=== PATIENT | female | born 1940 | race American Indian/Alaskan Native ===

== ENCOUNTER 2021-11-22 17:18 | Emergency (ER) | payer MEDICARE ==
[2021-11-22 17:24] VITALS: BP 166/78
== END 2021-11-22 22:14 | disposition left against medical advice (07) ==
LOC: ED 17:18
DX: Z99.2 Dependence on renal dialysis (principal); Z53.21 Procedure and treatment not carried out due to patient leaving prior to being seen by health care provider

== ENCOUNTER 2021-11-23 02:10 | Inpatient (IN) | payer MEDICARE ==
--- NOTE | 2021-11-23 02:49 | Emergency Department Report ---
ED General Adult HPI - General Chief complaint: Medical Clearance Stated complaint: DIALYSIS Time Seen by Provider: 11/23/21 02:41 Source: patient Mode of arrival: Wheelchair Limitations: Other - History of Present Illness Initial comments: 81-year-old -[place] female with a past medical history of hypertension, CHF, CKD stage V on dialysis, was brought to ED by [facility] staff with a chief complaint that patient needs dialysis. Patient is poor historian, states that she has been missing dialysis, does have a port in right upper chest. No fever, chills or night sweats. No chest pain or shortness of breath. -: Gradual, days(s) (2) Location: chest Radiation: non-radiation Severity scale (0 -10): 4 Quality: dull Consistency: intermittent Improves with: none Worsens with: none Associated Symptoms: denies other symptoms Treatments Prior to Arrival: none - Related Data Home Medications Medication Instructions Recorded Confirmed Last Taken Atorvastatin [Lipitor] 80 mg PO QHS 11/07/21 11/07/21 Unknown Budesonide/Formoterol Fumarate 2 puff IH BID 11/07/21 11/07/21 Unknown [Budesonide-Formoterol 160-4.5] Hydralazine HCl 50 mg PO TID 11/07/21 11/07/21 Unknown Insulin Glargine [Lantus VIAL] 15 unit SUB-Q BID 11/07/21 11/07/21 Unknown Isosorbide Mononitrate [Isosorbide 120 mg PO QDAY 11/07/21 11/07/21 Unknown Mononitrate ER] Levothyroxine [Synthroid] 75 mcg PO QAM 11/07/21 11/07/21 Unknown Megestrol Acetate 400 mg PO QDAY 11/07/21 11/07/21 Unknown Pantoprazole [Protonix TAB] 40 mg PO QDAY 11/07/21 11/07/21 Unknown carvediloL [Coreg] 25 mg PO Q12H 11/07/21 11/07/21 Unknown cloNIDine-TTS PATCH [Catapres-Tts 1 patch TD Q7D 11/07/21 11/07/21 Unknown 0.3mg Patch] minoxidiL [Loniten] 2.5 mg PO QDAY 11/07/21 11/07/21 Unknown Previous Rx's Medication Instructions Recorded Last Taken Type NIFEdipine XL [Procardia Xl] 30 mg PO Q12HR tablet 11/12/21 Unknown Rx Allergies Allergy/AdvReac Type Severity Reaction Status Date / Time tositumomab iodine-131 Allergy Hives Verified 11/23/21 02:33 Iodine and Iodide Containing AdvReac Hives Verified 11/07/21 01:38 Produc ED Review of Systems ROS: Stated complaint: DIALYSIS Other details as noted in HPI Constitutional: denies: chills, fever Eyes: denies: eye pain, eye discharge, vision change ENT: denies: ear pain, throat pain Respiratory: denies: cough, shortness of breath, wheezing Cardiovascular: denies: chest pain, palpitations Endocrine: no symptoms reported Gastrointestinal: denies: abdominal pain, nausea, diarrhea Genitourinary: denies: urgency, dysuria, discharge Musculoskeletal: denies: back pain, joint swelling, arthralgia Skin: denies: rash, lesions Neurological: denies: headache, weakness, paresthesias Psychiatric: denies: anxiety, depression Hematological/Lymphatic: denies: easy bleeding, easy bruising ED Past Medical Hx - Past Medical History Hx Hypertension: Yes Hx Diabetes: Yes Hx Renal Disease: Yes Additional medical history: DIALYSIS, HYPOTHYROIDISM - Social History Smoking Status: Never Smoker - Medications Home Medications: Home Medications Medication Instructions Recorded Confirmed Last Taken Type Atorvastatin [Lipitor] 80 mg PO QHS 11/07/21 11/07/21 Unknown History Budesonide/Formoterol Fumarate 2 puff IH BID 11/07/21 11/07/21 Unknown History [Budesonide-Formoterol 160-4.5] Hydralazine HCl 50 mg PO TID 11/07/21 11/07/21 Unknown History Insulin Glargine [Lantus VIAL] 15 unit SUB-Q BID 11/07/21 11/07/21 Unknown History Isosorbide Mononitrate [Isosorbide 120 mg PO QDAY 11/07/21 11/07/21 Unknown History Mononitrate ER] Levothyroxine [Synthroid] 75 mcg PO QAM 11/07/21 11/07/21 Unknown History Megestrol Acetate 400 mg PO QDAY 11/07/21 11/07/21 Unknown History Pantoprazole [Protonix TAB] 40 mg PO QDAY 11/07/21 11/07/21 Unknown History carvediloL [Coreg] 25 mg PO Q12H 11/07/21 11/07/21 Unknown History cloNIDine-TTS PATCH [Catapres-Tts 1 patch TD Q7D 11/07/21 11/07/21 Unknown History 0.3mg Patch] minoxidiL [Loniten] 2.5 mg PO QDAY 11/07/21 11/07/21 Unknown History NIFEdipine XL [Procardia Xl] 30 mg PO Q12HR tablet 11/12/21 Unknown Rx ED Physical Exam - General Limitations: Other General appearance: alert, in no apparent distress - Head Head exam: Present: atraumatic, normocephalic - Eye Eye exam: Present: normal appearance - ENT ENT exam: Present: mucous membranes moist - Neck Neck exam: Present: normal inspection - Respiratory Respiratory exam: Present: normal lung sounds bilaterally. Absent: respiratory distress - Cardiovascular Cardiovascular Exam: Present: regular rate, normal rhythm. Absent: systolic murmur, diastolic murmur, rubs, gallop - GI/Abdominal GI/Abdominal exam: Present: soft, normal bowel sounds - Extremities Exam Extremities exam: Present: normal inspection - Back Exam Back exam: Present: normal inspection - Neurological Exam Neurological exam: Present: alert, oriented X3 - Psychiatric Psychiatric exam: Present: normal affect, normal mood - Skin Skin exam: Present: warm, dry, intact, normal color. Absent: rash ED Course Vital Signs 11/23/21 11/23/21 11/23/21 02:31 03:17 03:18 Temperature 99.1 F Pulse Rate 84 86 Respiratory 18 16 18 Rate Blood Pressure 135/81 200/68 [Left] O2 Sat by Pulse 93 100 98 Oximetry ED Medical Decision Making - Lab Data Result diagrams: 11/23/21 03:01 11/23/21 03:01 - EKG Data -: EKG Interpreted by Me EKG shows normal: sinus rhythm Rate: normal - EKG Data When compared to previous EKG there are: no significant change Interpretation: nonspecific ST-T wave constantine 11/23/21 03:12 Rate 85 - Medical Decision Making Noncompliant dialysis patient in mild overload, will admit to get dialyzed. Nephrology consulted. Hospitalist consulted. - Differential Diagnosis Fluid overload, uremia, CHF. Critical care attestation.: If time is entered above; I have spent that time in minutes in the direct care of this critically ill patient, excluding procedure time. ED Disposition Clinical Impression: End-stage renal disease on hemodialysis, Hypertensive emergency, Uremia of renal origin Disposition: 09 ADMITTED INPATIENT Is pt being admited?: Yes Does the pt Need Aspirin: No Condition: Stable Instructions: Hypertension (ED)
[2021-11-23] MEDS ORDERED: cloNIDine 0.2 MG TAB PO ONE (03:22)
--- NOTE | 2021-11-23 03:22 | XRay Report ---
CHEST 1 VIEW 11/23/2021 2:09 AM INDICATION / CLINICAL INFORMATION: cp. COMPARISON: 11/07/2021. FINDINGS: SUPPORT DEVICES: Dialysis catheter unchanged. HEART / MEDIASTINUM: Stable cardiomegaly. LUNGS / PLEURA: No significant infiltrate accounting for rotation. No pneumothorax. ADDITIONAL FINDINGS: No significant additional findings. IMPRESSION: Stable chest. Signer Name: Wyatt Rock MD Signed: 11/23/2021 3:18 AM Workstation Name: [id number]
[2021-11-23 03:40] LABS: Alanine Aminotransferase 10 units/L (7-56); Albumin 3.6 g/dL (3.9-5); Blood Urea Nitrogen 43 mg/dL (7-17); Calcium 9.5 mg/dL (8.4-10.2); Hemolysis Index 6
[2021-11-23 03:43] LABS: BUN/Creatinine Ratio 5
[2021-11-23 03:51] LABS: Basophils # (Auto) 0.1 K/mm3 (0.0-0.1); Basophils % (Auto) 1.1 % (0.0-1.8); Eosinophils # (Auto) 0.1 K/mm3 (0.0-0.4); Eosinophils % (Auto) 1.7 % (0.0-4.3); Hematocrit 30.7 % (30.3-42.9); Hemoglobin 9.5 gm/dl (10.1-14.3); Lymphocytes # (Auto) 1.4 K/mm3 (1.2-5.4); Lymphocytes % (Auto) 20.1 % (13.4-35.0); Mean Corpuscular HGB Conc 31 % (30-34); Mean Corpuscular Volume 80 fl (79-97); Monocytes # (Auto) 0.9 K/mm3 (0.0-0.8); Monocytes % (Auto) 12.4 % (0.0-7.3); Platelet Count 240 K/mm3 (140-440); Red Blood Count 3.85 M/mm3 (3.65-5.03); Red Cell Distribution Width 15.2 % (13.2-15.2)
[2021-11-23 04:00] LABS: Chol/HDL Ratio 5.45 %
[2021-11-23] MEDS ORDERED: HYDROmorphone 1 MG/1 ML INJ IV PRN (05:06)
[2021-11-23] MEDS ORDERED: ACETAMINOPHEN 325 MG TAB PO PRN (05:06)
[2021-11-23] MEDS ORDERED: DEXTROSE 50% IN WATER (25GM) 50 ML SYRINGE IV PRN (05:06)
[2021-11-23] MEDS ORDERED: ALBUTEROL 2.5 MG/3 ML NEBU IH PRN (05:06)
[2021-11-23] MEDS ORDERED: ONDANSETRON 4 MG/2 ML INJ IV PRN (05:06)
[2021-11-23] MEDS ORDERED: MORPHINE 2 MG/1 ML INJ IV PRN (05:06)
--- NOTE | 2021-11-23 05:15 | History and Physical Report ---
History of Present Illness Date of examination: 11/23/21 Date of admission: 11/23/11 Chief complaint: Missed hemodialysis History of present illness: 81-year-old -[place] female with history of CHF, hypertension, end-stage renal disease on dialysis was brought to ED by [facility] staff with a chief complaint that patient needs dialysis. Patient is poor historian, states that she has been missing dialysis, does have a port in right upper chest. No fever, chills or night sweats. No chest pain or shortness of breath. In the emergency room patient is found to have BUN of 43 creatinine 8.7, troponin 0 0.109 and BNP greater than type 35,000 .subsequently Case was with nephrology's were going to admit the patient nephrology will hemodialyzed the patient in the morning Past History Past Medical History: ESRD, hypertension, hypothyroidism, renal failure Past Surgical History: Other (Hemodialysis) Social history: no significant social history, other (Never a smoker) Family history: no significant family history Medications and Allergies Allergies Allergy/AdvReac Type Severity Reaction Status Date / Time tositumomab iodine-131 Allergy Hives Verified 11/23/21 02:33 Iodine and Iodide Containing AdvReac Hives Verified 11/07/21 01:38 Produc Home Medications Medication Instructions Recorded Confirmed Last Taken Type Atorvastatin [Lipitor] 80 mg PO QHS 11/07/21 11/07/21 Unknown History Budesonide/Formoterol Fumarate 2 puff IH BID 11/07/21 11/07/21 Unknown History [Budesonide-Formoterol 160-4.5] Hydralazine HCl 50 mg PO TID 11/07/21 11/07/21 Unknown History Insulin Glargine [Lantus VIAL] 15 unit SUB-Q BID 11/07/21 11/07/21 Unknown History Isosorbide Mononitrate [Isosorbide 120 mg PO QDAY 11/07/21 11/07/21 Unknown His tory Mononitrate ER] Levothyroxine [Synthroid] 75 mcg PO QAM 11/07/21 11/07/21 Unknown History Megestrol Acetate 400 mg PO QDAY 11/07/21 11/07/21 Unknown History Pantoprazole [Protonix TAB] 40 mg PO QDAY 11/07/21 11/07/21 Unknown History carvediloL [Coreg] 25 mg PO Q12H 11/07/21 11/07/21 Unknown History cloNIDine-TTS PATCH [Catapres-Tts 1 patch TD Q7D 11/07/21 11/07/21 Unknown Hist ory 0.3mg Patch] minoxidiL [Loniten] 2.5 mg PO QDAY 11/07/21 11/07/21 Unknown History NIFEdipine XL [Procardia Xl] 30 mg PO Q12HR tablet 11/12/21 Unknown Rx Active Meds: Active Medications Acetaminophen (Acetaminophen 325 Mg Tab) 650 mg PO Q4H PRN PRN Reason: Pain MILD(1-3)/Fever >100.5/BALLARD Albuterol (Albuterol 2.5 Mg/3 Ml Nebu) 2.5 mg IH Q3HRT PRN PRN Reason: Shortness Of Breath Albuterol/Ipratropium (Ipratropium/Albuterol Sulfate 3 Ml Ampul.Neb) 1 ampul IH Q6HRT MARCIA Dextrose (Dextrose 50% In Water (25gm) 50 Ml Syringe) 50 ml IV Q30MIN PRN; Protocol PRN Reason: Hypoglycemia Famotidine (Famotidine 20 Mg Tab) 20 mg PO BID MARCIA Heparin Sodium (Porcine) (Heparin 5,000 Unit/1 Ml Vial) 5,000 unit SUB-Q Q12HR MARCIA Hydromorphone HCl (Hydromorphone 1 Mg/1 Ml Inj) 0.5 mg IV Q3H PRN PRN Reason: Pain , Severe (7-10) Insulin Human Lispro (Insulin Lispro 100 Unit/Ml) 0 unit SUB-Q ACHS MARCIA; Protocol Miscellaneous Medication (Atorvastatin [Lipitor]) 80 mg PO QHS MARCIA Miscellaneous Medication (Budesonide/Formoterol Fumarate [Budesonide-Formoterol 160-4.5]) 2 puff IH BID MARCIA Morphine Sulfate (Morphine 2 Mg/1 Ml Inj) 2 mg IV Q4H PRN PRN Reason: Pain, Moderate (4-6) Ondansetron HCl (Ondansetron 4 Mg/2 Ml Inj) 4 mg IV Q8H PRN PRN Reason: Nausea And Vomiting Sodium Chloride (Sodium Chloride 0.9% 10 Ml Flush Syringe) 10 ml IV BID MARCIA Sodium Chloride (Sodium Chloride 0.9% 10 Ml Flush Syringe) 10 ml IV PRN PRN PRN Reason: LINE FLUSH Review of Systems Constitutional: weakness, malaise, lethargy Exam - Constitutional Vitals: Temp Pulse Resp BP Pulse Ox 99.1 F 88 18 210/73 98 11/23/21 02:31 11/23/21 04:23 11/23/21 03:18 11/23/21 04:23 11/23/21 03:18 General appearance: Present: no acute distress, well-nourished - EENT Eyes: Present: PERRL ENT: hearing intact, clear oral mucosa - Neck Neck: Present: supple, normal ROM - Respiratory Respiratory effort: normal Respiratory: bilateral: CTA - Cardiovascular Heart Sounds: Present: S1 & S2. Absent: rub, click - Extremities Extremities: pulses symmetrical, No edema Peripheral Pulses: within normal limits - Abdominal General gastrointestinal: Present: soft, non-tender, non-distended, normal bowel sounds Female genitourinary: Present: normal - Integumentary Integumentary: Present: clear, warm, dry - Musculoskeletal Musculoskeletal: gait normal, strength equal bilaterally - Psychiatric Psychiatric: appropriate mood/affect, intact judgment & insight - Neurologic Neurologic: CNII-XII intact, moves all extremities HEART Score - HEART Score Troponin: Troponin T 0.109 ng/mL (0.00-0.029) H* 11/23/21 03:01 Results - Labs CBC & Chem 7: 11/23/21 03:01 11/23/21 03:01 Labs: Laboratory Last Values WBC 7.0 K/mm3 (4.5-11.0) 11/23/21 03:01 RBC 3.85 M/mm3 (3.65-5.03) 11/23/21 03:01 Hgb 9.5 gm/dl (10.1-14.3) L 11/23/21 03:01 Hct 30.7 % (30.3-42.9) 11/23/21 03:01 MCV 80 fl (79-97) 11/23/21 03:01 MCH 25 pg (28-32) L 11/23/21 03:01 MCHC 31 % (30-34) 11/23/21 03:01 RDW 15.2 % (13.2-15.2) 11/23/21 03:01 Plt Count 240 K/mm3 (140-440) 11/23/21 03:01 Lymph % (Auto) 20.1 % (13.4-35.0) 11/23/21 03:01 [place] % (Auto) 12.4 % (0.0-7.3) H 11/23/21 03:01 Eos % (Auto) 1.7 % (0.0-4.3) 11/23/21 03:01 Baso % (Auto) 1.1 % (0.0-1.8) 11/23/21 03:01 Lymph # (Auto) 1.4 K/mm3 (1.2-5.4) 11/23/21 03:01 [place] # (Auto) 0.9 K/mm3 (0.0-0.8) H 11/23/21 03:01 Eos # (Auto) 0.1 K/mm3 (0.0-0.4) 11/23/21 03:01 Baso # (Auto) 0.1 K/mm3 (0.0-0.1) 11/23/21 03:01 Seg Neutrophils % 64.7 % (40.0-70.0) 11/23/21 03:01 Seg Neutrophils # 4.5 K/mm3 (1.8-7.7) 11/23/21 03:01 Sodium 136 mmol/L (137-145) L 11/23/21 03:01 Potassium 4.1 mmol/L (3.6-5.0) 11/23/21 03:01 Chloride 95.6 mmol/L (98-107) L 11/23/21 03:01 Carbon Dioxide 21 mmol/L (22-30) L 11/23/21 03:01 Anion Gap 24 mmol/L 11/23/21 03:01 BUN 43 mg/dL (7-17) H 11/23/21 03:01 Creatinine 8.7 mg/dL (0.6-1.2) H 11/23/21 03:01 Estimated GFR 5 ml/min 11/23/21 03:01 BUN/Creatinine Ratio 5 % 11/23/21 03:01 Glucose 124 mg/dL (65-100) H 11/23/21 03:01 Calcium 9.5 mg/dL (8.4-10.2) 11/23/21 03:01 Total Bilirubin 0.50 mg/dL (0.1-1.2) 11/23/21 03:01 AST 18 units/L (5-40) 11/23/21 03:01 ALT 10 units/L (7-56) 11/23/21 03:01 Alkaline Phosphatase 57 units/L (35-129) 11/23/21 03:01 Troponin T 0.109 ng/mL (0.00-0.029) H* 11/23/21 03:01 NT-Pro-B Natriuret Pep > 07922 pg/mL (0-900) H 11/23/21 03:01 Total Protein 6.8 g/dL (6.3-8.2) 11/23/21 03:01 Albumin 3.6 g/dL (3.9-5) L 11/23/21 03:01 Albumin/Globulin Ratio 1.1 % 11/23/21 03:01 Triglycerides 126 mg/dL (2-149) 11/23/21 03:01 Cholesterol 218 mg/dL (50-199) H 11/23/21 03:01 LDL Cholesterol Direct 140 mg/dL (50-130) H 11/23/21 03:01 HDL Cholesterol 40 mg/dL (40-59) 11/23/21 03:01 Cholesterol/HDL Ratio 5.45 % 11/23/21 03:01 - Imaging and Cardiology Chest x-ray: report reviewed Assessment and Plan VTE prophylaxis?: Chemical Plan of care discussed with patient/family: Yes - Patient Problems (1) End-stage renal disease on hemodialysis Current Visit: Yes Status: Acute Plan to address problem: Admit the patient to the medical floor. Renal diet .will consult nephrology for hemodialysis in the morning. Recheck BMP in the morning (2) Hypertensive emergency Current Visit: Yes Status: Acute Plan to address problem: Isosorbide mononitrate 120 mg p.o. daily hydralazine 50 mg p.o. 3 times daily. Coreg 25 mg p.o. every 12 hours minoxidil 2.5 mg p.o. daily nifedipine XL 30 mg p.o. every 12 hours (3) Uremia of renal origin Current Visit: Yes Status: Acute Plan to address problem: Renal diet. Will consult nephrology for hemodialysis in the morning. Recheck BMP in the morning (4) Diabetes Current Visit: No Status: Acute Plan to address problem: 1800 kcal ADA diet. Lantus 15 units subcu twice daily. Diabetic education (5) Hypothyroidism Current Visit: Yes Status: Acute Plan to address problem: Stable. We will continue the home medication Synthroid 75 mcg p.o. every morning (6) Elevated troponin Current Visit: Yes Status: Acute Plan to address problem: Aspirin 81 mg p.o. daily. Lipitor 80 mg p.o. daily. Elevated troponin secondary to CKD. Consult cardiology if needed (7) DVT prophylaxis Current Visit: No Status: Acute Plan to address problem: Heparin 5000 units subcu every 12 hours for DVT prophylaxis. Pepcid 20 mg p.o. twice daily for GI prophylaxis. Patient is a full code
[2021-11-23] MEDS ORDERED: DEXTROSE 10% *Hypoglycemia IV PRN (05:37)
[2021-11-23] MEDS ORDERED: LEVOTHYROXINE 75 MCG TAB PO SCH (06:00)
--- NOTE | 2021-11-23 07:48 | Discharge Summary ---
Providers - Providers Date of Admission: 11/23/21 05:07 Date of discharge: 11/23/21 Attending physician: ISAC MOHAN MD 11/23/21 03:51 Consult to Physician [CONS] Routine Comment: Dr. Deluna spoke with Dr. Tyler @ 0350 Consulting Provider: MAXIMINO TYLER Physician Instructions: Reason For Exam: esrd 11/23/21 05:07 Consult to Dietitian/Nutrition [CONS] Routine Physician Instructions: Reason For Exam: Reason for Consult: Diet education Primary care physician: MARISSA WELLINGTON Hospitalization Reason for admission: Volume overload, ESRD on hemodialysis, hypertension. Condition: Stable Pertinent studies: Reviewed. Procedures: None. Hospital course: Patient is a 81-year-old female past medical history of CHF, hypertension, ESRD on hemodialysis (schedule unknown), hypothyroidism, insulin-dependent type 2 diabetes mellitus who presented from her correction due to concerns of the patient had been missing dialysis sessions. On presentation in the ED, the patient was found to be hemodynamically stable. However her blood pressure was uncontrolled at 200/68 and a repeat at 210/73 and 183/72. Patient was found to have a creatinine of 8.7, proBNP >35,000, and elevated troponin at 0.109. Nephrology was consulted, and they recommend hemodialysis to be performed this morning. The patient will undergo hemodialysis, and then she will be medically cleared for discharge. Disposition: 01 HOME / SELF CARE / HOMELESS Final Discharge Diagnosis (Prints w/discharge instructions): Volume overload, ESRD on hemodialysis, hypertension, hypothyroidism, insulin-dependent type 2 d iabetes mellitus, history of CHF Time spent for discharge: 45 min Core Measure Documentation - Palliative Care Palliative Care/ Comfort Measures: Not Applicable - Core Measures Any of the following diagnoses?: history only Exam - Constitutional Vitals: Temp Pulse Resp BP Pulse Ox 98 F 80 18 183/72 99 11/23/21 05:47 11/23/21 05:47 11/23/21 05:47 11/23/21 05:47 11/23/21 05:47 General appearance: Present: no acute distress, well-nourished - EENT Eyes: Present: PERRL, EOM intact ENT: hearing intact, clear oral mucosa - Neck Neck: Present: supple, normal ROM, other (Permacath in right upper chest) - Respiratory Respiratory effort: normal Respiratory: bilateral: CTA - Cardiovascular Rhythm: regular Heart Sounds: Present: S1 & S2 - Extremities Extremities: no ischemia, pulses intact, pulses symmetrical, normal temperature, normal color Peripheral Pulses: within normal limits - Abdominal General gastrointestinal: Present: soft, non-tender, non-distended, normal bowel sounds Female genitourinary: Present: deferred - Rectal Rectal Exam: deferred - Integumentary Integumentary: Present: clear, warm, dry - Musculoskeletal Musculoskeletal: generalized weakness - Psychiatric Psychiatric: appropriate mood/affect, cooperative - Neurologic Neurologic: CNII-XII intact - Allied Health Allied health notes reviewed: nursing Plan Activity: no restrictions Diet: renal Additional Instructions: Patient is a 81-year-old female past medical history of CHF, hypertension, ESRD on hemodialysis (schedule unknown), hypothyroidism, insulin-dependent type 2 diabetes mellitus who presented from her correction due to concerns of the patient had been missing dialysis sessions. On presentation in the ED, the patient was found to be hemodynamically stable. However her blood pressure was uncontrolled at 200/68 and a repeat at 210/73 and 183/72. Patient was found to have a creatinine of 8.7, proBNP >35,000, and elevated troponin at 0.109. Nephrology was consulted, and they recommend hemodialysis to be performed this morning. The patient will undergo hemodialysis, and then she will be medically cleared for discharge. Care Plan Goals: Patient is medically clear for discharge. Assessment: Patient is a 81-year-old female past medical history of CHF, hypertension, ESRD on hemodialysis (schedule unknown), hypothyroidism, insulin-dependent type 2 diabetes mellitus who presented from her correction due to concerns of the patient had been missing dialysis sessions. On presentation in the ED, the patient was found to be hemodynamically stable. However her blood pressure was uncontrolled at 200/68 and a repeat at 210/73 and 183/72. Patient was found to have a creatinine of 8.7, proBNP >35,000, and elevated troponin at 0.109. Nephrology was consulted, and they recommend hemodialysis to be performed this morning. The patient will undergo hemodialysis, and then she will be medically cleared for discharge. Follow up with: MARISSA WELLINGTON MD [Primary Care Provider] - 7 Days
[2021-11-23] MEDS ORDERED: ARFORMOTEROL 15 MCG/2 ML NEBU IH SCH (08:00)
[2021-11-23] MEDS ORDERED: NON-FORMULARY EACH (Hydralazine Hcl [Hydralazine Hcl] 50 MG Tablet) PO SCH (08:00)
[2021-11-23] MEDS ORDERED: BUDESONIDE 0.5 MG/2 ML NEBU IH SCH (08:00)
[2021-11-23] MEDS: INSULIN LISPRO 100 UNIT/ML SUB-Q SCH ×3 (08:05→16:25)
[2021-11-23] MEDS ORDERED: SODIUM CHLORIDE 0.9% 100 ML IV PRN (08:42)
--- NOTE | 2021-11-23 08:47 | Consultation ---
History of Present Illness - History of Present Illness #End-stage kidney disease: Admitted here missing dialysis treatment with some evidence of fluid overload hemodialysis will be ordered if doing well post dialysis can be discharged to follow-up with the clinic Monitor dialysis related labs/monitor for any access issues Fluid restriction 1200 cc/day high-protein diet #Access: Needs to be monitored during dialysis #Hypertension and volume: To monitor and follow avoid hypotension tachycardia during dialysis ultrafiltration goals can be adjusted if needed dialysis nurse to monitor hemodynamics closely #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: To monitor and follow erythropoietin periodically goal hemoglobin between 10-11-1/2 Minimize lab draw in dialysis patients # Bone mineral disorder and secondary hyperparathyroidism #Monitor phosphorus and PTH level, goal phosphorus less than 5-1/2 PTH under 600 #Diet and nutrition: High-protein diet, multivitamin, Nepro, #Medication management: Will need to be followed Past History Past Medical History: ESRD, hypertension, hypothyroidism, renal failure Past Surgical History: Other (Hemodialysis) Social history: no significant social history, other (Never a smoker) Family history: no significant family history Medications and Allergies Allergies Allergy/AdvReac Type Severity Reaction Status Date / Time tositumomab [id number] Allergy Hives Verified 11/23/21 02:33 Iodine and Iodide Containing AdvReac Hives Verified 11/07/21 01:38 Produc Home Medications Medication Instructions Recorded Confirmed Last Taken Type Atorvastatin [Lipitor] 80 mg PO QHS 11/07/21 11/07/21 Unknown History Budesonide/Formoterol Fumarate 2 puff IH BID 11/07/21 11/07/21 Unknown History [Budesonide-Formoterol 160-4.5] Hydralazine HCl 50 mg PO TID 11/07/21 11/07/21 Unknown History Insulin Glargine [Lantus VIAL] 15 unit SUB-Q BID 11/07/21 11/07/21 Unknown History Isosorbide Mononitrate [Isosorbide 120 mg PO QDAY 11/07/21 11/07/21 Unknown History Mononitrate ER] Levothyroxine [Synthroid] 75 mcg PO QAM 11/07/21 11/07/21 Unknown History Megestrol Acetate 400 mg PO QDAY 11/07/21 11/07/21 Unknown History Pantoprazole [Protonix TAB] 40 mg PO QDAY 11/07/21 11/07/21 Unknown History carvediloL [Coreg] 25 mg PO Q12H 11/07/21 11/07/21 Unknown History cloNIDine-TTS PATCH [Catapres-Tts 1 patch TD Q7D 11/07/21 11/07/21 Unknown History 0.3mg Patch] minoxidiL [Loniten] 2.5 mg PO QDAY 11/07/21 11/07/21 Unknown History NIFEdipine XL [Procardia Xl] 30 mg PO Q12HR tablet 11/12/21 Unknown Rx Active Meds: Active Medications Acetaminophen (Acetaminophen 325 Mg Tab) 650 mg PO Q4H PRN PRN Reason: Pain MILD(1-3)/Fever >100.5/BALLARD Albuterol (Albuterol 2.5 Mg/3 Ml Nebu) 2.5 mg IH Q3HRT PRN PRN Reason: Shortness Of Breath Albuterol/Ipratropium (Ipratropium/Albuterol Sulfate 3 Ml Ampul.Neb) 1 ampul IH Q6HRT MARCIA Arformoterol Tartrate (Arformoterol 15 Mcg/2 Ml Nebu) 15 mcg IH Q12HRT MARCIA Aspirin (Aspirin 81 Mg Tab Chew) 81 mg PO QDAY MARCIA Atorvastatin Calcium (Atorvastatin 40 Mg Tab) 80 mg PO QHS MARCIA Budesonide (Budesonide 0.5 Mg/2 Ml Nebu) 1 mg IH Q12HRT MARCIA Carvedilol (Carvedilol 25 Mg Tab) 25 mg PO Q12HR MARCIA Clonidine HCl (Clonidine Tts 0.3 Mg/24 Hr Patch) 0.3 mg TD Sa MARCIA Dextrose (Dextrose 10% *Hypoglycemia) 0 ml IV PRN PRN PRN Reason: Hypoglycemia Heparin Sodium (Porcine) (Heparin 5,000 Unit/1 Ml Vial) 5,000 unit SUB-Q Q12HR MARCIA Hydralazine HCl (Hydralazine 25 Mg Tab) 50 mg PO TID MARCIA Hydromorphone HCl (Hydromorphone 1 Mg/1 Ml Inj) 0.5 mg IV Q3H PRN PRN Reason: Pain , Severe (7-10) Sodium Chloride (Nacl 0.9%) 100 mls @ 999 mls/hr IV SONIA PRN PRN Reason: Hypotension Insulin Glargine (Insulin Glargine 100 Units/Ml) 15 units SUB-Q BID MARCIA Insulin Human Lispro (Insulin Lispro 100 Unit/Ml) 0 unit SUB-Q ACHS [facility]; Protocol Last Admin: 11/23/21 08:05 Dose: Not Given Isosorbide Mononitrate (Isosorbide Mononitrate Er 60 Mg Tab) 120 mg PO QDAY [facility] Levothyroxine Sodium (Levothyroxine 75 Mcg Tab) 75 mcg PO QAM@0600 [facility] Megestrol Acetate (Megestrol 400 Mg/10 Ml Oral Liqd) 400 mg PO QDAY [facility] Minoxidil (Minoxidil 2.5 Mg Tab) 2.5 mg PO QDAY [facility] Morphine Sulfate (Morphine 2 Mg/1 Ml Inj) 2 mg IV Q4H PRN PRN Reason: Pain, Moderate (4-6) Nifedipine (Nifedipine Xl 30 Mg Tab) 30 mg PO Q12HR [facility] Ondansetron HCl (Ondansetron 4 Mg/2 Ml Inj) 4 mg IV Q8H PRN PRN Reason: Nausea And Vomiting Pantoprazole Sodium (Pantoprazole 40 Mg Tab) 40 mg PO QDAY [facility] Sodium Chloride (Sodium Chloride 0.9% 10 Ml Flush Syringe) 10 ml IV BID [facility] Sodium Chloride (Sodium Chloride 0.9% 10 Ml Flush Syringe) 10 ml IV PRN PRN PRN Reason: LINE FLUSH Exam - Vital Signs Vital signs: Vital Signs Temp Pulse Resp BP Pulse Ox 99.1 F 84 18 135/81 93 11/23/21 02:31 11/23/21 02:31 11/23/21 02:31 11/23/21 02:31 11/23/21 02:31 Results - Lab Results 11/23/21 03:01 11/23/21 03:01 Most recent lab results Calcium 9.5 mg/dL (8.4-10.2) 11/23/21 03:01
[2021-11-23] MEDS: IPRATROPIUM/ALBUTEROL SULFATE 3 ML AMPUL.NEB IH SCH ×2 (09:48→14:34)
[2021-11-23] MEDS ORDERED: ISOSORBIDE MONONITRATE 120 MG PO SCH (10:00)
[2021-11-23] MEDS ORDERED: carvediloL 25 MG TAB PO SCH (10:00)
[2021-11-23] MEDS ORDERED: PANTOPRAZOLE 40 MG TAB PO SCH (10:00)
[2021-11-23] MEDS ORDERED: MEGESTROL 400 MG/10 ML ORAL LIQD PO SCH (10:00)
[2021-11-23] MEDS ORDERED: NON-FORMULARY EACH (Budesonide/Formoterol Fumarate [Budesonide-Formoterol 160-4.5] 10.2 GM IH SCH (10:00)
[2021-11-23] MEDS ORDERED: cloNIDine TTS 0.3 MG/24 HR PATCH TD SCH (10:00)
[2021-11-23] MEDS ORDERED: MINOXIDIL 2.5 MG TAB PO SCH (10:00)
[2021-11-23] MEDS ORDERED: FAMOTIDINE 20 MG TAB PO SCH (10:00)
[2021-11-23] MEDS ORDERED: HEPARIN 5,000 UNIT/1 ML VIAL SUB-Q SCH (10:00)
[2021-11-23] MEDS ORDERED: ASPIRIN 81 MG TAB CHEW PO SCH (10:00)
[2021-11-23] MEDS ORDERED: INSULIN GLARGINE 100 UNITS/ML SUB-Q SCH (10:00)
[2021-11-23] MEDS ORDERED: NIFEdipine XL 30 MG TAB PO SCH (10:00)
[2021-11-23] MEDS: hydrALAZINE 25 MG TAB PO SCH ×3 (12:15→14:05)
[2021-11-23 16:15] VITALS: BP 168/60
[2021-11-23] MEDS ORDERED: NON-FORMULARY EACH (Atorvastatin [Lipitor] 80 MG Tablet) PO SCH (22:00)
--- NOTE | 2021-11-24 10:45 | Electrocardiograph Report ---
[facility] Test Date: 2021-11-23 Test Time: 03:01:47 Pat Name: FLORENCIO LIMA Department: Room: A371 1 Gender: F Order Entry Representative: ABDIRAHMAN : 1940 Requested By: CELIA DAI Order Number: [id number] Reading MD: Ruddy Regalado Measurements Intervals [place] Rate: 85 P: 44 ID: [id number] QRS: -43 QRSD: 92 T: 185 QT: 412 QTc: 490 Interpretive Statements Sinus rhythm Probable anterior infarct, age indeterminate T wave abnormality, consider inferior and anterolateral ischemia Compared to ECG 11/07/2021 03:12:00 Left-axis deviation no longer present Prolonged QT interval no longer present Electronically Signed On 11-24-2021 10:44:46 EDT by Ruddy Regalado
== END 2021-11-23 16:30 | DRG 640 ==
LOC: ED 02:10 → 3A 05:07
PROVIDERS: ADMIT Hospitalist; ATTEND Student in an Organized Health Care Education/Training Program
PROC: 5A1D70Z Performance of Urinary Filtration, Intermittent, Less than 6 Hours Per Day (ICD-10-PCS; principal; 2021-11-23)
DX: E87.70 Fluid overload, unspecified (principal); N18.6 End stage renal disease; I13.2 Hypertensive heart and chronic kidney disease with heart failure and with stage 5 chronic kidney disease, or end stage renal disease; I16.1 Hypertensive emergency; N25.81 Secondary hyperparathyroidism of renal origin; Z20.822 Contact with and (suspected) exposure to COVID-19; I50.9 Heart failure, unspecified; E11.22 Type 2 diabetes mellitus with diabetic chronic kidney disease; Z99.2 Dependence on renal dialysis; E03.9 Hypothyroidism, unspecified; Z88.3 Allergy status to other anti-infective agents; R77.8 Other specified abnormalities of plasma proteins; D63.1 Anemia in chronic kidney disease; Z79.4 Long term (current) use of insulin
CPT/HCPCS: 36415; 71045; 80053; 80061; 82962; 83880; 84484; 85025; 93005; 94640; G0378; U0003

== ENCOUNTER 2021-12-04 01:14 | Emergency (ER) | payer MEDICARE ==
--- NOTE | 2021-12-04 02:57 | Emergency Department Report ---
HPI - General Chief Complaint: Hypoglycemia Time Seen by Provider: 12/04/21 01:53 - HPI HPI: Room 23 The patient is an 81-year-old female present with a chief complaint of hypoglycemia. Per the custodial the patient was found this evening at 00: 00 leaning on the side of the bed and drooling. Staff came in this at the patient had a generalized tonic-clonic seizure lasting several minutes. Accu-Chek revealed the patient had a glucose of 40. Patient was given glucagon by staff prior to arrival. The nurse states the patient was administered her insulin at 21: 00 and at the time of the patient seizure time they noticed that the patient had not eaten any food off of her dinner tray. EMS was called and had an Accu- Chek of 36. The patient was given an amp of D50 with improvement of her glucose and the patient's mental status. Staff at [facility] custodial states the patient at her baseline does not speak much and does not ambulate. My description of the patient's behavior in the ED currently is consistent with the patient's baseline per the nurse ED Past Medical Hx - Past Medical History Hx Hypertension: Yes Hx Diabetes: Yes Hx Renal Disease: Yes Additional medical history: DIALYSIS, HYPOTHYROIDISM - Surgical History Past Surgical History?: No - Family History Family history: no significant - Social History Smoking Status: Unknown if ever smoked - Medications Home Medications: Home Medications Medication Instructions Recorded Confirmed Last Taken Type Atorvastatin [Lipitor] 80 mg PO QHS 11/07/21 11/07/21 Unknown History Budesonide/Formoterol Fumarate 2 puff IH BID 11/07/21 11/07/21 Unknown History [Budesonide-Formoterol 160-4.5] Hydralazine HCl 50 mg PO TID 11/07/21 11/07/21 Unknown History Insulin Glargine [Lantus VIAL] 15 unit SUB-Q BID 11/07/21 11/07/21 Unknown History Isosorbide Mononitrate [Isosorbide 120 mg PO QDAY 11/07/21 11/07/21 Unknown History Mononitrate ER] Levothyroxine [Synthroid] 75 mcg PO QAM 11/07/21 11/07/21 Unknown History Megestrol Acetate 400 mg PO QDAY 11/07/21 11/07/21 Unknown History Pantoprazole [Protonix TAB] 40 mg PO QDAY 11/07/21 11/07/21 Unknown History carvediloL [Coreg] 25 mg PO Q12H 11/07/21 11/07/21 Unknown History cloNIDine-TTS PATCH [Catapres-Tts 1 patch TD Q7D 11/07/21 11/07/21 Unknown History 0.3mg Patch] minoxidiL [Loniten] 2.5 mg PO QDAY 11/07/21 11/07/21 Unknown History NIFEdipine XL [Procardia Xl] 30 mg PO Q12HR tablet 11/12/21 Unknown Rx ED Review of Systems ROS: Stated complaint: LOW BLOOD SUGAR Other details as noted in HPI Comment: Unobtainable due to pts medical conditions Physical Exam - Physical Exam Vital Signs: Vital Signs 12/04/21 02:39 Pulse Rate 83 Respiratory 16 Rate Blood Pressure 191/77 [Left] O2 Sat by Pulse 98 Oximetry Physical Exam: GENERAL: The patient is well-developed well-nourished female lying on stretcher not appearing to be in acute distress. Patient alert and makes eye contact when spoken to HEENT: Normocephalic. Atraumatic. Extraocular motions are intact. Patient has moist mucous membranes. NECK: Supple. Trachea midline CHEST/LUNGS: Clear to auscultation. There is no respiratory distress noted. HEART/CARDIOVASCULAR: Regular. There is no tachycardia. There is no gallop rub or murmur. ABDOMEN: Abdomen is soft, nontender. Patient has normal bowel sounds. There is no abdominal distention. SKIN: There is no rash. There is no edema. There is no diaphoresis. NEURO: The patient is awake, alert and makes eye contact when spoken to but does not respond verbally.. The patient is not cooperative with neurologic exam. MUSCULOSKELETAL: There is no evidence of acute injury. ED Course Vital Signs 12/04/21 02:39 Pulse Rate 83 Respiratory 16 Rate Blood Pressure 191/77 [Left] O2 Sat by Pulse 98 Oximetry - Reevaluation(s) Reevaluation #1: 12/04/21 05:35 Accu-Chek 150 ED Medical Decision Making - Lab Data Result diagrams: 12/04/21 02:46 12/04/21 02:46 Laboratory Tests 12/04/21 12/04/21 12/04/21 02:15 02:46 02:46 WBC 12.0 H RBC 4.55 Hgb 10.9 Hct 35.9 MCV 79 MCH 24 L MCHC 31 RDW 15.8 H Plt Count 210 Lymph % (Auto) 10.2 L [place] % (Auto) 5.5 Eos % (Auto) 0.1 Baso % (Auto) 0.5 Lymph # (Auto) 1.2 [place] # (Auto) 0.7 Eos # (Auto) 0.0 Baso # (Auto) 0.1 Seg Neutrophils % 83.7 H Seg Neutrophils # 10.0 H Sodium 139 Potassium 3.5 L Chloride 98.7 Carbon Dioxide 23 Anion Gap 21 BUN 26 H Creatinine 5.8 H Estimated GFR 8 BUN/Creatinine Ratio 4 Glucose 149 H POC Glucose 145 H Calcium 9.9 - Radiology Data Radiology results: report reviewed (CT head), image reviewed (CT head) [facility] [address] [place] [address] Cat Scan Report Signed Patient: FLORENCIO LIMA MR#: [id number] : 1940 Acct:[id number] Age/Sex: 81 / F ADM Date: 12/04/21 Loc: ED Attending Dr: Ordering Physician: STU METZGER MD Date of Service: 12/04/21 Procedure(s): CT head/brain wo con Accession Number(s): [id number] cc: STU METZGER MD CT HEAD WITHOUT CONTRAST INDICATION / CLINICAL INFORMATION: Seizure. TECHNIQUE: All CT scans at this location are performed using CT dose reduction for ALARA by means of automated exposure control. COMPARISON: None available. FINDINGS: HEMORRHAGE: None. EXTRA-AXIAL SPACES: Normal in size and morphology for the patient's age. VENTRICULAR SYSTEM: Normal in size and morphology for the patient's age. CEREBRAL PARENCHYMA: Tiny lacunar infarct in the left thalamus. Mildly prominent perivascular space in the right ganglia region inferiorly. Small old area of infarction in the right occipital lobe. No evidence of acute major vessel occlusion.. MIDLINE SHIFT / HERNIATION: None. CEREBELLUM / B RAINSTEM: No significant abnormality. ORBITS: Prior bilateral cataract surgery. SOFT TISSUES: No significant abnormality. SKULL: No significant abnormality. PARANASAL SINUSES / MASTOID AIR CELLS: Normal as visualized. ADDITIONAL FINDINGS: None. IMPRESSION: No acute intracranial abnormality. Signer Name: Israel Helm MD Signed: 12/04/2021 3:59 AM Workstation Name: [id number] Transcribed By: RT Dictated By: Israel Helm MD Electronically Authenticated By: Israel Helm MD Signed Date/Time: 12/04/21358 DD/ 5 TD/TT: - Differential Diagnosis Hypoglycemia Critical care attestation.: If time is entered above; I have spent that time in minutes in the direct care of this critically ill patient, excluding procedure time. ED Disposition Clinical Impression: Hypoglycemia, Hypertension Disposition: 03 RETIREMENT [facility] Is pt being admited?: No Does the pt Need Aspirin: No Condition: Stable Instructions: Hypertension (ED) Additional Instructions: Return to the emergency department should you develop worsening symptoms, inability to tolerate food or liquids, high fever or any other concerns Referrals: PRIMARY CARE, [Referring] - 3-5 Days Time of Disposition: 05:35
[2021-12-04 03:01] LABS: Basophils # (Auto) 0.1 K/mm3 (0.0-0.1); Basophils % (Auto) 0.5 % (0.0-1.8); Eosinophils % (Auto) 0.1 % (0.0-4.3); Lymphocytes # (Auto) 1.2 K/mm3 (1.2-5.4); Lymphocytes % (Auto) 10.2 % (13.4-35.0); Mean Corpuscular HGB Conc 31 % (30-34); Mean Corpuscular Volume 79 fl (79-97); Monocytes # (Auto) 0.7 K/mm3 (0.0-0.8); Monocytes % (Auto) 5.5 % (0.0-7.3); Platelet Count 210 K/mm3 (140-440); Red Blood Count 4.55 M/mm3 (3.65-5.03); Red Cell Distribution Width 15.8 % (13.2-15.2)
[2021-12-04 03:07] LABS: Hematocrit 35.9 % (30.3-42.9); Hemoglobin 10.9 gm/dl (10.1-14.3)
[2021-12-04 03:15] LABS: Calcium 9.9 mg/dL (8.4-10.2)
--- NOTE | 2021-12-04 04:04 | Cat Scan Report ---
CT HEAD WITHOUT CONTRAST INDICATION / CLINICAL INFORMATION: Seizure. TECHNIQUE: All CT scans at this location are performed using CT dose reduction for ALARA by means of automated exposure control. COMPARISON: None available. FINDINGS: HEMORRHAGE: None. EXTRA-AXIAL SPACES: Normal in size and morphology for the patient's age. VENTRICULAR SYSTEM: Normal in size and morphology for the patient's age. CEREBRAL PARENCHYMA: Tiny lacunar infarct in the left thalamus. Mildly prominent perivascular space i n the right ganglia region inferiorly. Small old area of infarction in the right occipital lobe. No e vidence of acute major vessel occlusion.. MIDLINE SHIFT / HERNIATION: None. CEREBELLUM / BRAINSTEM: No significant abnormality. ORBITS: Prior bilateral cataract surgery. SOFT TISSUES: No significant abnormality. SKULL: No significant abnormality. PARANASAL SINUSES / MASTOID AIR CELLS: Normal as visualized. ADDITIONAL FINDINGS: None. IMPRESSION: No acute intracranial abnormality. Signer Name: Israel Helm MD Signed: 12/04/2021 3:59 AM Workstation Name: [id number]
[2021-12-04] MEDS ORDERED: hydrALAZINE 20 MG/1 ML INJ IM ONE (05:10)
[2021-12-04 06:17] VITALS: BP 138/77
== END 2021-12-04 07:00 ==
LOC: ED 01:14
DX: E11.649 Type 2 diabetes mellitus with hypoglycemia without coma (principal); I10 Essential (primary) hypertension
CPT/HCPCS: 36415; 70450; 80048; 82962; 85025; 96372; 99284; J0360; J3490